=== PATIENT | male | born 1995 | race Two or more races ===

== ENCOUNTER 2022-11-27 18:59 | Emergency (ER) | payer MEDICAID, OTHER ==
[~2022-11-27] VITALS: Ht 180.3 cm; Wt 59.0 kg
[2022-11-27 20:21] LABS: Albumin 5.4 g/dL (3.4-5.0); Potassium 3.7 mmol/L (3.5-5.1)
[2022-11-27 20:24] LABS: BUN/Creatinine Ratio 10.3 (10.0-20.0); Bilirubin, Total 2.8 mg/dL (0.2-1.0); Total Protein 8.8 g/dL (6.4-8.2)
[2022-11-27 21:01] LABS: Basophils # (auto) 0.1 10 ^3/uL (0-0.2); Basophils % (auto) 1.2 % (0.0-2.0); Eosinophils # (auto) 0.2 10 ^3/uL (0-0.8); Eosinophils % (auto) 3.2 % (0.0-7.0); Hematocrit 49.8 % (41.0-53.0); Lymphocytes # (auto) 2.8 10 ^3/uL (0.4-5.4); Lymphocytes % (auto) 42.8 % (10.0-50.0); Mean Corpuscular Hemoglobin 30.4 pg (28.0-32.0); Mean Corpuscular Hgb Conc. 34.2 g/dL (32.0-36.0); Mean Corpuscular Volume 88.9 fL (80.0-100.0); Monocytes # (auto) 0.6 10 ^3/uL (0-1.3); Monocytes % (auto) 8.6 % (0.0-12.0); Neutrophils # (auto) 2.9 10 ^3/uL (1.6-8.6); Neutrophils % (auto) 44.2 % (37.0-80.0); Nucleated Red Blood Cells % 0.4 %; Red Cell Distribution Width 14.1 % (11.8-14.3); White Blood Cell 6.6 10^3/uL (4.4-10.8)
[2022-11-27 22:15] LABS: Urine Bacteria NONE SEEN /hpf (None Seen); Urine Blood Negative /uL (Negative); Urine Mucus FEW (None Seen); Urine WBC <1 /hpf (0 - 3)
[2022-11-28 03:44] VITALS: BP 104/71
[2022-11-28] MEDS ORDERED: PANT40TA2 PO (03:48)
== END 2022-11-28 03:55 | disposition home or self-care (01) ==
LOC: ER 18:59
DX: K92.2 Gastrointestinal hemorrhage, unspecified (principal)
CPT/HCPCS: 36415; 74176; 80053; 81001; 83690; 85025

== ENCOUNTER 2022-12-07 09:22 | Inpatient (IN) | payer MEDICAID, OTHER ==
[~2022-12-07] VITALS: Ht 180.3 cm; Wt 62.6 kg
[~2022-12-07 09:22] MED LIST: PANT40TA2 PO
[2022-12-07 10:14] LABS: Basophils # (auto) 0 10 ^3/uL (0-0.2); Basophils % (auto) 0.3 % (0.0-2.0); Eosinophils # (auto) 0.1 10 ^3/uL (0-0.8); Hematocrit 49.2 % (41.0-53.0); Hemoglobin 16.4 g/dL (13.5-17.5); Lymphocytes # (auto) 1.2 10 ^3/uL (0.4-5.4); Lymphocytes % (auto) 11.5 % (10.0-50.0); Mean Corpuscular Hemoglobin 30.1 pg (28.0-32.0); Mean Corpuscular Hgb Conc. 33.3 g/dL (32.0-36.0); Mean Corpuscular Volume 90.5 fL (80.0-100.0); Monocytes # (auto) 0.9 10 ^3/uL (0-1.3); Monocytes % (auto) 8.8 % (0.0-12.0); Neutrophils # (auto) 8.2 10 ^3/uL (1.6-8.6); Neutrophils % (auto) 78.4 % (37.0-80.0); Nucleated Red Blood Cells % 0.1 %; Red Blood Cells 5.43 10^6/uL (4.5-5.90); White Blood Cell 10.4 10^3/uL (4.4-10.8)
[2022-12-07 10:18] LABS: Urine Bacteria NONE SEEN /hpf (None Seen); Urine Blood Negative /uL (Negative); Urine Specific Gravity 1.009 (1.001-1.035); Urine WBC <1 /hpf (0 - 3)
[2022-12-07 10:47] LABS: INR 1.09 (0.9-1.15); Partial Thromboplastin Time 30.8 SEC (24.5-34.5)
[2022-12-07 10:56] LABS: Potassium 4.1 mmol/L (3.5-5.1)
[2022-12-07 11:03] LABS: Albumin 4.3 g/dL (3.4-5.0); BUN/Creatinine Ratio 5.6 (10.0-20.0); Calcium 9.4 mg/dL (8.5-10.1)
[2022-12-07 11:13] LABS: Bilirubin, Total 1.9 mg/dL (0.2-1.0)
[2022-12-07] MEDS ORDERED: PIPERACILLIN-TAZOB 3.375GM 100 ML IV ONE (13:30)
[2022-12-07] MEDS ORDERED: SODIUM CHLORIDE 0.9% 1,000 ML IV ONE (13:30)
[2022-12-07 14:56] LABS: Lactic Acid w/Reflex 2.1 mmol/L (0.4-2.0)
[2022-12-07] MEDS ORDERED: PANTOPRAZOLE 40 MG/10 ML VIAL INJ IV ONE (15:00)
[2022-12-07] MEDS ORDERED: QUET50TA PO (15:33)
[2022-12-07] MEDS ORDERED: ARIP2TAB PO (15:33)
[2022-12-07] MEDS ORDERED: SERT100T PO (15:33)
[2022-12-07] MEDS: ONDANSETRON HCL 4 MG/2 ML VIAL IV PRN (15:36)
[2022-12-07 18:27] LABS: Hematocrit 44.3 % (41.0-53.0)
[2022-12-07] MEDS: SODIUM CHLORIDE 0.9% 1,000 ML IV SCH (19:06)
[2022-12-07] MEDS: QUEtiapine FUMARATE 100 MG TAB PO SCH (19:09)
[2022-12-07] MEDS: metroNIDAZOLE 500MG/100ML 100 ML IV SCH (21:24)
[2022-12-07 22:30] VITALS: BP 98/65
[2022-12-07] MEDS: PANTOPRAZOLE 40 MG/10 ML VIAL INJ IV SCH (23:49)
[2022-12-08 04:30] VITALS: BP 94/56
[2022-12-08] MEDS: SODIUM CHLORIDE 0.9% 1,000 ML IV SCH ×3 (05:21→21:40)
[2022-12-08] MEDS: metroNIDAZOLE 500MG/100ML 100 ML IV SCH ×3 (05:25→21:36)
[2022-12-08 05:52] LABS: Basophils # (auto) 0 10 ^3/uL (0-0.2); Basophils % (auto) 0.6 % (0.0-2.0); Eosinophils # (auto) 0.2 10 ^3/uL (0-0.8); Eosinophils % (auto) 3.2 % (0.0-7.0); Hematocrit 42.7 % (41.0-53.0); Hemoglobin 14.4 g/dL (13.5-17.5); Lymphocytes # (auto) 1.9 10 ^3/uL (0.4-5.4); Lymphocytes % (auto) 33.7 % (10.0-50.0); Mean Corpuscular Hemoglobin 30.5 pg (28.0-32.0); Mean Corpuscular Hgb Conc. 33.6 g/dL (32.0-36.0); Mean Corpuscular Volume 90.9 fL (80.0-100.0); Monocytes # (auto) 0.5 10 ^3/uL (0-1.3); Monocytes % (auto) 8.9 % (0.0-12.0); Neutrophils # (auto) 3.1 10 ^3/uL (1.6-8.6); Neutrophils % (auto) 53.6 % (37.0-80.0); Red Cell Distribution Width 13.6 % (11.8-14.3); White Blood Cell 5.7 10^3/uL (4.4-10.8)
[2022-12-08 06:00] LABS: Potassium 3.6 mmol/L (3.5-5.1)
[2022-12-08 06:08] LABS: Albumin 3.5 g/dL (3.4-5.0); BUN/Creatinine Ratio 5.8 (10.0-20.0); Bilirubin, Total 2.4 mg/dL (0.2-1.0); Calcium 8.7 mg/dL (8.5-10.1); Total Protein 6.6 g/dL (6.4-8.2)
[2022-12-08 08:00] VITALS: BP 108/62
[2022-12-08] MEDS ORDERED: PANTOPRAZOLE 40 MG/10 ML VIAL INJ IV SCH (10:00)
[2022-12-08] MEDS: ARIPIPRAZOLE 2 MG PO SCH (10:00)
[2022-12-08] MEDS: SERTRALINE HCL 50 MG TAB PO SCH (10:17)
[2022-12-08] MEDS: PANTOPRAZOLE 40 MG/10 ML VIAL INJ IV SCH ×2 (10:17→21:36)
[2022-12-08 12:00] VITALS: BP 101/52
[2022-12-08] MEDS: ONDANSETRON HCL 4 MG/2 ML VIAL IV PRN (12:47)
[2022-12-08] MEDS ORDERED: LIDOCAINE 2% (LOCAL ANESTH.) PF 5ml SDV ONE (13:44)
[2022-12-08] MEDS ORDERED: PROPOFOL 10 MG/ML 20 ML IV ONE (13:44)
[2022-12-08 16:00] VITALS: BP 115/69
[2022-12-08] MEDS ORDERED: ACETAMINOPHEN 500 MG TAB PO PRN (17:15)
[2022-12-08] MEDS: SUCRALFATE 1 GM/10 ML ORAL SUSP PO SCH ×2 (17:37→21:36)
[2022-12-08] MEDS: QUEtiapine FUMARATE 100 MG TAB PO SCH (18:33)
[2022-12-08] MEDS: MESALAMINE 400mg Delayed Release Cap PO SCH (21:36)
[2022-12-08] MEDS: HYDROCORTISONE SOD SUCC 100 MG/2ML INJ VIAL IV SCH (21:36)
[2022-12-08 22:00] VITALS: BP 95/50
[2022-12-09 05:00] VITALS: BP 102/62
[2022-12-09 06:01] LABS: Basophils # (auto) 0 10 ^3/uL (0-0.2); Basophils % (auto) 0.2 % (0.0-2.0); Eosinophils # (auto) 0 10 ^3/uL (0-0.8); Eosinophils % (auto) 0.2 % (0.0-7.0); Hematocrit 41.1 % (41.0-53.0); Lymphocytes # (auto) 0.7 10 ^3/uL (0.4-5.4); Lymphocytes % (auto) 10.6 % (10.0-50.0); Mean Corpuscular Hemoglobin 30.5 pg (28.0-32.0); Mean Corpuscular Hgb Conc. 34.2 g/dL (32.0-36.0); Mean Corpuscular Volume 89.3 fL (80.0-100.0); Monocytes # (auto) 0.3 10 ^3/uL (0-1.3); Monocytes % (auto) 4.2 % (0.0-12.0); Neutrophils # (auto) 5.3 10 ^3/uL (1.6-8.6); Neutrophils % (auto) 84.8 % (37.0-80.0); Red Cell Distribution Width 13.5 % (11.8-14.3); White Blood Cell 6.3 10^3/uL (4.4-10.8)
[2022-12-09] MEDS: metroNIDAZOLE 500MG/100ML 100 ML IV SCH ×2 (06:09→13:54)
[2022-12-09] MEDS: MESALAMINE 400mg Delayed Release Cap PO SCH ×2 (06:09→13:54)
[2022-12-09] MEDS: SUCRALFATE 1 GM/10 ML ORAL SUSP PO SCH ×3 (06:10→17:41)
[2022-12-09 06:22] LABS: Potassium 3.7 mmol/L (3.5-5.1)
[2022-12-09 06:32] LABS: Albumin 3.5 g/dL (3.4-5.0); BUN/Creatinine Ratio 7.3 (10.0-20.0); Bilirubin, Total 1.9 mg/dL (0.2-1.0); Calcium 8.6 mg/dL (8.5-10.1); Total Protein 6.5 g/dL (6.4-8.2)
[2022-12-09] MEDS: SODIUM CHLORIDE 0.9% 1,000 ML IV SCH ×2 (07:00→17:00)
[2022-12-09 09:00] VITALS: BP 104/61
[2022-12-09] MEDS: HYDROCORTISONE SOD SUCC 100 MG/2ML INJ VIAL IV SCH (09:11)
[2022-12-09] MEDS: SERTRALINE HCL 50 MG TAB PO SCH (09:11)
[2022-12-09] MEDS: PANTOPRAZOLE 40 MG/10 ML VIAL INJ IV SCH (09:11)
[2022-12-09] MEDS: ARIPIPRAZOLE 2 MG PO SCH (09:13)
[2022-12-09 13:00] VITALS: BP 99/61
[2022-12-09] MEDS ORDERED: PRED10TA PO (13:34)
[2022-12-09] MEDS ORDERED: PANT40T PO (13:34)
[2022-12-09] MEDS ORDERED: SUCR1SUS26 PO (13:34)
[2022-12-09] MEDS ORDERED: MESA400C PO (13:34)
[2022-12-09] MEDS ORDERED: METR-344 PO (13:34)
[2022-12-09 16:49] VITALS: BP 106/70
[2022-12-09 17:00] VITALS: BP_SYST 106; BP_SYST 111; BP_DIAS 64; BP_DIAS 70
[2022-12-09] MEDS: QUEtiapine FUMARATE 100 MG TAB PO SCH (17:40)
[2022-12-11 09:24] LABS: Hepatitis B Surface Antibody Negative (Negative)
[2022-12-11 10:00] LABS: Hepatitis A Total Antibody Positive (Negative)
[2022-12-11 13:53] LABS: Hepatitis C Antibody Negative (Negative)
== END 2022-12-09 19:20 | disposition home or self-care (01) | DRG 241 ==
LOC: ER 09:22 → OVERFLOW 14:59 → CENTRAL 19:35
PROVIDERS: ADMIT Nurse Practitioner Family; ATTEND Internal Medicine
PROC: 0DB68ZX Excision of Stomach, Via Natural or Artificial Opening Endoscopic, Diagnostic (ICD-10-PCS; 2022-12-08)
PROC: 0DB98ZX Excision of Duodenum, Via Natural or Artificial Opening Endoscopic, Diagnostic (ICD-10-PCS; principal; 2022-12-08 13:48)
DX: K29.71 Gastritis, unspecified, with bleeding (principal); F10.10 Alcohol abuse, uncomplicated; K52.9 Noninfective gastroenteritis and colitis, unspecified; F90.9 Attention-deficit hyperactivity disorder, unspecified type; F31.9 Bipolar disorder, unspecified; J45.909 Unspecified asthma, uncomplicated; F12.90 Cannabis use, unspecified, uncomplicated; K44.9 Diaphragmatic hernia without obstruction or gangrene; Z80.9 Family history of malignant neoplasm, unspecified
CPT/HCPCS: 36415; 71045; 74176; 80053; 81001; 83605; 83690; 84484; 85014; 85018; 85025; 85048; 85610; 85730; 86256; 86671; 86704; 86706; 86708; 86803; 86850; 86900; 86901; 87040; 87081; 87340; 93005; 96361; 96365; 96375; C9113; G0378; J2001; J2405; J2543; J2704; J3490